=== PATIENT | female | born 1960 | race Caucasian/White ===

== ENCOUNTER 2025-09-06 15:39 | Emergency (ER) | payer MEDICAID, SELFPAY ==
[2025-09-06 15:40] VITALS: BMI 40.3
[2025-09-06 15:48] VITALS: BP 146/83; PULSE 95; RESP 20; TEMP 36.8; O2SAT 98
--- NOTE | 2025-09-06 15:54 | XR_ITS ---
Examination: CT abdomen and pelvis without contrast. Coronal 3-D reconstructions. Sagittal 2-D reconstructions. Date and time of exam: September 06, 2025, 1604 hours INDICATIONS: Generalized abdominal pain and nausea today COMPARISON: September 11, 2023 CTDI: vol (mGy): 19 DLP: (mGycm): 1185 Technique: Axial images of the abdomen have been obtained, 3 mm slice thickness Intravenous contrast material has not been administered. Low dose protocols were performed. One or more of the following dose reduction techniques were used; automated exposure control, adjustment of the mA and/or KV according to patient size, use of iterative reconstruction technique. Findings: 9 mm anterior pericardial effusion No focal liver or splenic lesion Absent gallbladder Common bile duct is not enlarged No pancreatic or adrenal mass Numerous 1 to 3 mm bilateral renal calculi Minimal left hydronephrosis, 8 mm calculus in the left renal pelvis Aorta normal size 23 mm lymph node lateral to the abdominal aorta No bowel obstruction Normal appendix No diverticulitis Anteverted uterus with multiple uterine fundal masses poorly defined on this noncontrast study Urinary bladder intact Moderate osteopenia IMPRESSION: Small pericardial effusion Numerous bilateral renal calculi Minimal left hydronephrosis, 8 mm calculus in the left renal pelvis 23 mm lymph node lateral to the abdominal aorta, consider PET CT scan staging follow-up Recommend pelvic sonography to assess multiple uterine fundal masses
--- NOTE | 2025-09-06 15:55 | PD.EDRME ---
Rapid Medical Screening Exam [facility] Arrival date/time: 09/06/25 15:39 64-year-old female with no known medical history presents to the emergency room with a chief complaint of left-sided flank pain and constipation x 5 days. Patient also states she got scratched by a dog in her right foot and is having redness and drainage from the site. I have greeted and performed a focused initial assessment of this patient. A comprehensive ED assessment and evaluation of the patient, analysis of all test results, and completion of the medical decision making process will be conducted by additional ED providers. Chief Complaint: Abdominal Pain Time Seen by Provider: 09/06/25 15:50 Vital signs: Vital Signs Temperature 98.2 F 09/06/25 15:48 Pulse Rate 95 09/06/25 15:48 Respiratory Rate 20 09/06/25 15:48 Blood Pressure 146/83 H 09/06/25 15:48 Pulse Oximetry (%) 98 09/06/25 15:48 Oxygen Delivery Method Room Air 09/06/25 15:48 Vital signs reviewed by provider: Yes Exam: Left CVA tenderness with palpation. Left sciatic notch tenderness with palpation. Right dorsal foot erythema and drainage Clinical Impression: Renal calculi/hydronephrosis/constipation/small bowel obstruction/
[2025-09-06 16:29] LABS: Basophils # (Auto) 0.0 Thou/mm3 (0.0-0.2); Basophils % (Auto) 1 % (0-2.5); Eosinophils # (Auto) 0.2 Thou/mm3 (0.0-0.5); Eosinophils % (Auto) 2 % (0-10); Hematocrit 50.9 % (36.0-46.0); Hemoglobin 17.5 g/dL (12.0-16.0); Immature Granulocytes Auto 0.02 Thou/mm3 (0.00-0.00); Lymphocytes # (Auto) 1.9 Thou/mm3 (1.0-4.8); Lymphocytes % (Auto) 22 % (10-50); Mean Corpuscular HGB Conc 34.4 g/dl (31.0-37.0); Mean Corpuscular Hemoglobin 30.2 pg (25.0-35.0); Mean Corpuscular Volume 88 fL (80-100); Monocytes # (Auto) 0.5 Thou/mm3 (0.0-0.8); Monocytes % (Auto) 6 % (0-12); Neutrophils # (Auto) 6.1 Thou/mm3 (1.8-7.7); Neutrophils % (Auto) 69 % (37-80); Nucleated Red Blood Cell # 0.00 Thou/mm3 (0.00-0.00); Nucleated Red Blood Cell % 0 /100 WBC (0); Platelet Count 336 Thou/mm3 (140-440); RDW Standard Deviation 39.0 fL (36.4-46.3); Red Blood Count 5.79 Miln/mm3 (4.00-5.20); White Blood Count 8.8 Thou/mm3 (3.6-11.0)
[2025-09-06 16:33] LABS: Collection Type, Urine Clean Catch
[2025-09-06 16:42] LABS: Alanine Aminotransferase 21 U/L (10-49); Albumin, Serum 4.4 gm/dL (3.4-4.8); Albumin/Globulin Ratio 1.8 (1.2-2.2); Alkaline Phosphatase 102 U/L (46-116); Anion Gap 8 (7-16); Aspartate Amino Transferase 26 U/L (0-34); BUN/Creatinine Ratio 11 Ratio (12-20); Bilirubin,Total 1.6 mg/dL (0.3-1.2); Blood Urea Nitrogen 9 mg/dL (9-23); Calcium 9.6 mg/dL (8.3-10.6); Calcium (Corrected) 9.6 mg/dL (8.5-10.1); Carbon Dioxide 31.1 mMol/L (20.0-31.0); Chloride 100 mMol/L (98-107); Creatinine (Component) 0.8 mg/dL (0.6-1.3); Estimated Creatinine Clearance 83.5 mL/min (>60); Globulin 2.4 gm/dL (2.3-3.5); Glucose 333 mg/dL (74-106); Lipase 30 U/L (12-53); Osmolality,Calculated 289 (275-295); Potassium 4.0 mMol/L (3.4-5.1); Sodium 139 mMol/L (136-145); Total Protein 6.8 gm/dL (5.7-8.2); eGFR > 60 See Note
--- NOTE | 2025-09-06 17:08 | PD.EDRME ---
Rapid Medical Screening Exam [facility] Arrival date/time: 09/06/25 15:39 09/06/25 15:39 64-year-old female with no known medical history presents to the emergency room with a chief complaint of left-sided flank pain and constipation x 5 days. Patient also states she got scratched by a dog in her right foot and is having redness and drainage from the site. I have greeted and performed a focused initial assessment of this patient. A comprehensive ED assessment and evaluation of the patient, analysis of all test results, and completion of the medical decision making process will be conducted by additional ED providers. Chief Complaint: Abdominal Pain Time Seen by Provider: 09/06/25 15:50 Vital signs: Vital Signs Temperature 98.2 F 09/06/25 15:48 Pulse Rate 95 09/06/25 15:48 Respiratory Rate 20 09/06/25 15:48 Blood Pressure 146/83 H 09/06/25 15:48 Pulse Oximetry (%) 98 09/06/25 15:48 Oxygen Delivery Method Room Air 09/06/25 15:48 RME Narrative: 09/06/25 15:39 64-year-old female with no known medical history presents to the emergency room with a chief complaint of left-sided flank pain and constipation x 5 days. Patient also states she got scratched by a dog in her right foot and is having redness and drainage from the site. I have greeted and performed a focused initial assessment of this patient. A comprehensive ED assessment and evaluation of the patient, analysis of all test results, and completion of the medical decision making process will be conducted by additional ED providers. Exam: Left CVA tenderness with palpation. Left sciatic notch tenderness with palpation. Right dorsal foot erythema and drainage Clinical Impression: Renal calculi/hydronephrosis/constipation/small bowel obstruction/
[2025-09-06 17:10] LABS: Bacteria,Urine 1+; Bilirubin,Urine Negative (Negative); Blood,Urine 1+ (Negative); Clarity,Urine Turbid (Clear/Hazy); Color,Urine Yellow (Lt Yel-Yel); Glucose, Urine 4+ (Negative); Ketones,Urine Negative (Negative); Leukocyte Esterase,Urine Positive (Negative); Nitrite,Urine Negative (Negative); PH,Urine 7.0 (5.0-7.0); Protein,Urine 1+ (Neg - Trace); RBC,Urine 31 /hpf (0-3); Specific Gravity,Urine 1.020 (1.001-1.035); Squamous Epithelial Cell,Urine 4 /hpf (0-5); Urobilinogen,Urine Negative mg/dL (0.0-1.0); WBC,Urine 100 /hpf (0-5)
[2025-09-06 17:48] VITALS: BP 160/90; PULSE 88; RESP 20; TEMP 36.6; O2SAT 99
--- NOTE | 2025-09-06 17:59 | PD.EDADULT ---
ED General RME/HPI General Chief complaint: Abdominal Pain Stated complaint: CONSIPATION X5-6 DAYS Time Seen by Provider: 09/06/25 15:50 Arrival date/time: 09/06/25 15:39 CC: Left flank pain HPI intermittent for the past 4 to 5 days denies any fever chills, thinks it is constipation has taken multiple laxatives with bowel movements but does not relieve the pain. Patient denies any nausea vomiting. Patient is also complaining of scratches on her right foot from her dog. Denies chest pain shortness of breath or difficulty breathing. At 1800 patient informs me she is noncompliant diabetic and has been for some time . RME / HPI RME / HPI narrative: 09/06/25 15:39 64-year-old female with no known medical history presents to the emergency room with a chief complaint of left-sided flank pain and constipation x 5 days. Patient also states she got scratched by a dog in her right foot and is having redness and drainage from the site. I have greeted and performed a focused initial assessment of this patient. A comprehensive ED assessment and evaluation of the patient, analysis of all test results, and completion of the medical decision making process will be conducted by additional ED providers. Exam: Left CVA tenderness with palpation. Left sciatic notch tenderness with palpation. Right dorsal foot erythema and drainage Impression: Renal calculi/hydronephrosis/constipation/small bowel obstruction/ Related Data Previous Rx's ?Medication ?Instructions ?Recorded ondansetron HCl 4 mg tablet 4 mg PO Q8H #20 tabs 07/12/20 (Zofran) tramadol 50 mg tablet 50 mg PO Q8H PRN pain #14 tabs 09/05/23 tramadol 50 mg tablet 50 mg PO Q6H PRN pain #20 tabs 09/11/23 ciprofloxacin HCl 500 mg tablet 500 mg PO BID #14 tabs 09/06/25 (Cipro) metformin 500 mg tablet 500 mg PO BID #30 tabs 09/06/25 Allergies Allergy/AdvReac Type Severity Reaction Status Date / Time promethazine HCl Allergy Mild PSYCHOSIS Verified 09/06/25 15:43 promethazine (From Phenergan) Allergy Verified 09/06/25 15:43 Review of Systems Review of Systems Narrative Review of Systems: GEN: No fever, no chills, no weight loss EYES: No discharge, no visual changes, no pain HEENT: No ear pain, no congestion, no sore throat PULM: No shortness of breath, no cough, no congestion CV: No chest pain, no dyspnea on exertion, no palpitations GI: No nausea, no vomiting, no diarrhea, no pain, no constipation : No frequency, no urgency, no dysuria MUSC/SKEL: No joint pain, no back pain, + flank pain SKIN: No rash PSYCH: No hallucinations, no depression HEME/LYMPH: No easy bleeding or bruising tendencies NEURO: No weakness, no headache Past Medical History Past Medical History CARDIAC: Negative Cardiac Disorders or Congestive Heart Failure RESPIRATORY: Positive Asthma; Negative Chronic Obstructive Pulmonary Disease (COPD) GENITOURINARY: Negative Renal Disease ENDOCRINE: Positive Endocrine Disorders and Diabetes Mellitus Type 2; Negative Diabetes Mellitus Type 1 HEMATOLOGIC: Negative Sickle Cell Disease PSYCHO/SOCIAL: Positive Anxiety Social History SMOKING STATUS: Never smoker ED Exam Narrative Physical exam: [General: Morbidly obese not in any acute distress Head normocephalic HEENT: Within acceptable limits Neck is supple nontender Chest equal chest rise nontender to palpation Respiratory: Clear to auscultation no wheezes crackles or rubs CV: Rate rhythm is regular no murmurs rubs or clicks Abdomen is grossly distended secondary to body habitus soft, mild tenderness with palpation of the pannus and left lower quadrant no right lower quadrant or upper abdominal pain with palpation. Back: Left CVA tenderness no right CVA tenderness, no spinous process tenderness from cervical spine thoracic and lumbar spine Skin: Intact no petechiae rash induration ulceration or crepitus Extremities: Moving all extremities against resistance cap refill less than 2 seconds neurosensory intact Neuro: Awake alert oriented x3 Glascow coma 15 no focal deficits] Course Course Course Narrative: Reassessment of this patient at 1921, the patient feels much better , patient has no pain no nausea we will discharge the patient home restarting her on metformin, give her antibiotics for the UTI, also she will need to get a referral from her PCP for urology regarding the urolithiasis Quality Measures none Orders Category Date Time Status Saline [Insert IV] NOW Care 09/06/25 17:[address] abdomen pelvis wo con Stat Exams 09/06/25 15:54 Completed CBC Stat Lab 09/06/25 16:13 Completed CMP [Comprehensive Metabolic Panel] Stat Lab 09/06/25 16:13 Completed Hemoglobin A1C [Glycohemoglobin w (eAG)] Stat Lab 09/06/25 18:00 Completed Lipase Stat Lab 09/06/25 16:13 Completed UA [Urinalysis] Stat Lab 09/06/25 16:24 Completed Urine Culture Stat Lab 09/06/25 16:24 Received Ketorolac Inj [Toradol Inj] Med 09/06/25 17:58 Discontinued 30 mg IVP X1 ONE cefTRIAXone/D5w 1gm IV premix [Rocephin/D5w 1gm IV Med 09/06/25 17:58 Discontinued premix] 1 gm in 50 ml IV X1 Vital Signs Vital signs: Vital Signs Temperature 98.2 F 09/06/25 15:48 Pulse Rate 95 09/06/25 15:48 Respiratory Rate 20 09/06/25 15:48 Blood Pressure 146/83 H 09/06/25 15:48 Pulse Oximetry (%) 98 09/06/25 15:48 Oxygen Delivery Method Room Air 09/06/25 15:48 Discharge Plan Plan Patient Disposition: HOME (Self Care) Prescriptions/Referrals Prescriptions/Med Rec: New metformin 500 mg tablet 500 mg PO BID Qty: 30 1RF ciprofloxacin HCl [Cipro] 500 mg tablet 500 mg PO BID Qty: 14 0RF No Action ondansetron HCl [Zofran] 4 mg tablet 4 mg PO Q8H Qty: 20 0RF tramadol 50 mg tablet 50 mg PO Q8H PRN (Reason: pain) Qty: 14 0RF tramadol 50 mg tablet 50 mg PO Q6H PRN (Reason: pain) Qty: 20 0RF Referrals: Noble Stapleton MD [Primary Care Provider, Family Practice] - In 1 week Cary Shipman MD [Physician, Urology] - In 1 week Problem List Clinical Impression: Urolithiasis, Diabetes, History of medication noncompliance Patient/Caregiver Discharge Instructions Education Materials: Diabetes: Living Your Life, ED Kidney Stone Undescended No ... Additional Instructions: Take the antibiotics for the urinary tract infection, please start the metformin as prescribed to start to manage your diabetes, please follow-up with both of these with your primary care doctor. Also please follow-up your primary care doctor and get a referral for urology regarding the stone in your pelvis of your kidney. If there is worsening of the pain in spite of ibuprofen or Tylenol at home return to the emergency room for reevaluation. Print Language: Jamaican Stand Alone Forms: Rose Award Info., Patient Portal Info Letter, Work/School Release BLAS/FLACO Supervising Physician SHAHBAZ Supervising Physician: Carlos Torres ENP MDM Clinical Information Provided by: patient Medical Records reviewed [facility] Meds/Rx considered, not ordered None Labs/Rad/Tests considered, not ordered None Chronic Illness/Social Conditions Explain: Obesity EKG EKG not done Labs Labs: interpreted by pa Lab(s) Interpretation(s): CBC shows no leukocytosis she has hemoconcentrated with hemoglobin of 17.5 and crit of 50.9. No thrombocytopenia CMP shows no significant electrolyte imbalances other than a glucose of 333, no renal impairment transaminitis. T. bili is elevated at 1.6. Lipase at 30 Urine is turbid 4+ glucose leukocyte esterase +100 WBCs 31 RBCs 1+ bacteria. Medication Administration(s) Medication Administration History Discontinued Medications Ceftriaxone Sodium/Dextrose (Rocephin/D5w 1gm Iv Premix) 1 gm in 50 mls @ 100 mls/hr IV X1 ONE Stop: 09/06/25 18:27 Last Infusion: 09/06/25 19:11 Dose: Infused Documented By: Admin: 09/06/25 18:17 Dose: 100 mls/hr Documented By: ABIGAIL Ketorolac Tromethamine (Ketorolac Inj 30 Mg/Ml Vial) 30 mg IVP X1 ONE Stop: 09/06/25 17:59 Last Admin: 09/06/25 18:16 Dose: 30 mg Documented By: ABIGAIL
--- NOTE | 2025-09-06 18:09 | PC.NURSE ---
Patient from lobby and taken to room 16 with c/o left lower abd. pain radiating down left leg x 3 days, new orders received from provider.
[2025-09-06] MEDS: KETOROLAC INJ 30 MG/ML VIAL IVP (18:16)
[2025-09-06] MEDS: cefTRIAXone/D5w 1gm IV premix 1 GM/50 ML BAG IV (18:17)
[2025-09-06 18:31] VITALS: BP 144/82; PULSE 81; RESP 17; TEMP 36.8; O2SAT 97
[2025-09-06 18:41] LABS: Glucose Estimated Average 278 mg/dL (80-131); Hemoglobin A1C 11.3 % Hgb (4.8-6.0)
== END 2025-09-06 19:33 | disposition home or self-care (01) ==
PROVIDERS: Nurse Practitioner Family; Registered Nurse General Practice; Emergency Provider Emergency Medicine; PCP Family Medicine
DX: N13.2 Hydronephrosis with renal and ureteral calculous obstruction (principal); E11.9 Type 2 diabetes mellitus without complications; E66.9 Obesity, unspecified; Z79.84 Long term (current) use of oral hypoglycemic drugs
CPT/HCPCS: 36415; 74176; 80053; 81001; 83036; 83690; 85025; 87077; 87086; 87186; 96365; 96375; 99284; J0696; J1885

== ENCOUNTER 2025-10-10 18:07 | Emergency (ER) | payer MEDICAID, SELFPAY ==
[2025-10-10 19:11] VITALS: BP 103/71; PULSE 98; RESP 18; TEMP 37.6; O2SAT 97
--- NOTE | 2025-10-10 19:22 | XR_ITS ---
Examination: CT abdomen and pelvis without contrast. Coronal 3-D reconstructions. Sagittal 2-D reconstructions. Date and time of exam: October 10, 2025, 1932 hours INDICATIONS: Left flank pain vomiting today, history kidney stones CTDI: vol (mGy): 21.3 DLP: (mGycm): 1037 Technique: Axial images of the abdomen have been obtained, 3 mm slice thickness Intravenous contrast material has not been administered. Low dose protocols were performed. One or more of the following dose reduction techniques were used; automated exposure control, adjustment of the mA and/or KV according to patient size, use of iterative reconstruction technique. Findings: Pericardial effusion anteriorly measuring 10 mm No visualized liver or splenic lesion Absent gallbladder No pancreatic or adrenal mass Numerous bilateral renal calculi ranging in size from 2 to 10 mm No hydronephrosis or ureteral calculi Normal appendix No bowel obstruction or diverticulitis Multiple uterine fundal masses No bladder mass or bladder calculi Moderate osteopenia IMPRESSION: Numerous bilateral nonobstructing renal calculi, no hydronephrosis or ureteral calculi Normal appendix Consider pelvic sonography to assess multiple uterine fundal masses
--- NOTE | 2025-10-10 19:22 | PD.EDRME ---
Rapid Medical Screening Exam [facility] Arrival date/time: 10/10/25 18:07 This is a case of 64-year-old female with history of kidney stone and was recently diagnosed to have kidney stone again last month came in in the emergency room due to left flank pain radiating to the left lower abdomen with nausea of and vomiting worsening of the symptoms this patient decided to start consulted in the emergency room Chief Complaint: Urogenital-Female Time Seen by Provider: 10/10/25 18:36 Vital signs: Vital Signs Temperature 99.7 F 10/10/25 19:11 Pulse Rate 98 10/10/25 19:11 Respiratory Rate 18 10/10/25 19:11 Blood Pressure 103/71 10/10/25 19:11 Pulse Oximetry (%) 97 10/10/25 19:11 Oxygen Delivery Method Room Air 10/10/25 19:11 Exam: Moderate tenderness left flank and left lower quadrant no guarding no rebound no rigidity Clinical Impression: Kidney stone
[2025-10-10 19:46] LABS: Basophils # (Auto) 0.1 Thou/mm3 (0.0-0.2); Basophils % (Auto) 0 % (0-2.5); Eosinophils # (Auto) 0.0 Thou/mm3 (0.0-0.5); Eosinophils % (Auto) 0 % (0-10); Hematocrit 48.1 % (36.0-46.0); Hemoglobin 16.4 g/dL (12.0-16.0); Immature Granulocytes Auto 0.24 Thou/mm3 (0.00-0.00); Lymphocytes # (Auto) 0.3 Thou/mm3 (1.0-4.8); Lymphocytes % (Auto) 1 % (10-50); Mean Corpuscular HGB Conc 34.1 g/dl (31.0-37.0); Mean Corpuscular Hemoglobin 29.9 pg (25.0-35.0); Mean Corpuscular Volume 88 fL (80-100); Monocytes # (Auto) 1.4 Thou/mm3 (0.0-0.8); Monocytes % (Auto) 5 % (0-12); Neutrophils # (Auto) 24.3 Thou/mm3 (1.8-7.7); Neutrophils % (Auto) 92 % (37-80); Nucleated Red Blood Cell # 0.00 Thou/mm3 (0.00-0.00); Nucleated Red Blood Cell % 0 /100 WBC (0); Platelet Count 248 Thou/mm3 (140-440); RDW Standard Deviation 40.0 fL (36.4-46.3); Red Blood Count 5.49 Miln/mm3 (4.00-5.20); White Blood Count 26.4 Thou/mm3 (3.6-11.0)
[2025-10-10 20:16] LABS: Alanine Aminotransferase 18 U/L (10-49); Albumin, Serum 4.1 gm/dL (3.4-4.8); Albumin/Globulin Ratio 1.3 (1.2-2.2); Alkaline Phosphatase 100 U/L (46-116); Anion Gap 13 (7-16); Aspartate Amino Transferase 23 U/L (0-34); BUN/Creatinine Ratio 16 Ratio (12-20); Bilirubin,Total 1.5 mg/dL (0.3-1.2); Blood Urea Nitrogen 14 mg/dL (9-23); Calcium 9.7 mg/dL (8.3-10.6); Calcium (Corrected) 9.7 mg/dL (8.5-10.1); Carbon Dioxide 24.4 mMol/L (20.0-31.0); Chloride 101 mMol/L (98-107); Creatinine (Component) 0.9 mg/dL (0.6-1.3); Globulin 3.2 gm/dL (2.3-3.5); Glucose 289 mg/dL (74-106); Lipase 22 U/L (12-53); Osmolality,Calculated 287 (275-295); Potassium 3.3 mMol/L (3.4-5.1); Sodium 138 mMol/L (136-145); Total Protein 7.3 gm/dL (5.7-8.2); eGFR > 60 See Note
[2025-10-10 20:23] LABS: Collection Type, Urine Clean Catch
[2025-10-10 20:34] LABS: Bacteria,Urine 1+; Bilirubin,Urine Negative (Negative); Blood,Urine 1+ (Negative); Clarity,Urine Clear (Clear/Hazy); Color,Urine Lt-Yellow (Lt Yel-Yel); Glucose, Urine 4+ (Negative); Ketones,Urine 2+ (Negative); Leukocyte Esterase,Urine Positive (Negative); Nitrite,Urine Negative (Negative); PH,Urine 5.5 (5.0-7.0); Protein,Urine Trace (Neg - Trace); RBC,Urine 11 /hpf (0-3); Specific Gravity,Urine 1.031 (1.001-1.035); Squamous Epithelial Cell,Urine 8 /hpf (0-5); Urobilinogen,Urine Negative mg/dL (0.0-1.0); WBC,Urine 11 /hpf (0-5)
--- NOTE | 2025-10-10 22:05 | PD.EDFMALE ---
ED Female Urogenital RME/HPI General Chief complaint: Urogenital-Female Stated complaint: L) KIDNEY STONE, VOMITING Time Seen by Provider: 10/10/25 18:36 Arrival date/time: 10/10/25 18:07 RME / HPI RME / HPI Narrative: 10/10/25 18:07 This is a case of 64-year-old female with history of kidney stone and was recently diagnosed to have kidney stone again last month came in in the emergency room due to left flank pain radiating to the left lower abdomen with nausea of and vomiting worsening of the symptoms this patient decided to start consulted in the emergency room Dr. [facility] ED Evaluation: 64yo female presents to the ED for a chief complaint of left flank pain. No radiation or migration. Patient was informed she had a kidney stone last month and was told to come back if her pain worsened. Patient reports associated nausea, vomiting, and intermittent dysuria. Patient denies any abdominal pain, fever, chills, or any other associated symptoms. Patient is pending an appointment with a urologist, but was told the next available appointment was not until November. Related Data Previous Rx's ?Medication ?Instructions ?Recorded ondansetron HCl 4 mg tablet 4 mg PO Q8H #20 tabs 07/12/20 (Zofran) tramadol 50 mg tablet 50 mg PO Q8H PRN pain #14 tabs 09/05/23 tramadol 50 mg tablet 50 mg PO Q6H PRN pain #20 tabs 09/11/23 ciprofloxacin HCl 500 mg tablet 500 mg PO BID #14 tabs 09/06/25 (Cipro) metformin 500 mg tablet 500 mg PO BID #30 tabs 09/06/25 cephalexin 500 mg capsule 1,000 mg (2 x 500 mg) PO BID 7 10/10/25 days #28 caps ondansetron 4 mg disintegrating 4 mg PO Q6H PRN nausea and 10/10/25 tablet vomiting #20 tabs Allergies Allergy/AdvReac Type Severity Reaction Status Date / Time promethazine HCl Allergy Mild PSYCHOSIS Verified 10/10/25 18:10 promethazine (From Phenergan) Allergy Verified 10/10/25 18:10 Review of Systems Review of Systems Systems Reviewed: All systems reviewed, normal except as documented Past Medical History Past Medical History CARDIAC: Negative Cardiac Disorders or Congestive Heart Failure RESPIRATORY: Positive Asthma; Negative Chronic Obstructive Pulmonary Disease (COPD) GENITOURINARY: Negative Renal Disease ENDOCRINE: Positive Endocrine Disorders and Diabetes Mellitus Type 2; Negative Diabetes Mellitus Type 1 HEMATOLOGIC: Negative Sickle Cell Disease PSYCHO/SOCIAL: Positive Anxiety Surgical History SURGICAL: Positive Section (x2) Social History SMOKING STATUS: Never smoker ED Exam Narrative Physical exam: Generally patient is alert morbidly obese but no obvious distress, heart regular rate and rhythm, lungs clear to auscultation equal bilaterally, abdomen is obese soft nondistended nontender, musculoskeletal exam showed the patient had mild left-sided costovertebral angle tenderness, skin is warm pale and dry, neurologic exam showed Ye Coma Scale of 15 without focal motor deficits and without ataxia Course Quality Measures none Orders Category Date Time Status CT abdomen pelvis wo con Stat Exams 10/10/25 19:22 Completed CBC Stat Lab 10/10/25 19:35 Completed Comprehensive Metabolic Panel Stat Lab 10/10/25 19:35 Completed Lipase Stat Lab 10/10/25 19:35 Completed Urinalysis Stat Lab 10/10/25 20:00 Completed Morphine* Inj Med 10/10/25 22:14 Discontinued 4 mg IVP X1 ONE Ondansetron Inj [Zofran Inj] Med 10/10/25 22:14 Discontinued 4 mg IVP X1 ONE cefTRIAXone/D5w 1gm IV premix [Rocephin/D5w 1gm IV Med 10/10/25 22:14 Active premix] 1 gm in 50 ml IV X1 Vital Signs Vital signs: Vital Signs Temperature 99.7 F 10/10/25 19:11 Pulse Rate 98 10/10/25 19:11 Respiratory Rate 18 10/10/25 19:11 Blood Pressure 103/71 10/10/25 19:11 Pulse Oximetry (%) 97 10/10/25 19:11 Oxygen Delivery Method Room Air 10/10/25 19:11 Urogenital - Female MDM Narrative MDM Narrative:: Scribe Attestation: 10/10/25 - Rosie Barbour am scribing for and in the presence of Dr. Balbuena. Patient has a white blood cell count of 26,000 with a left shift. CT scan done of the abdomen and pelvis without contrast showed masses on the uterus which the patient is familiar with. It showed no evidence of hydroureteronephrosis. There were stones within the kidneys. No inflammatory process seen. No diverticulitis. The urine is quite possibly infected. This would make sense with the left flank pain and the leukocytosis. At this time I will treat the patient for a UTI/pyelonephritis. Patient will receive Rocephin 1 g IV as well as morphine 4 mg IV and Zofran 4 mg IV. Patient will be discharged on cephalexin and Zofran to be taken as prescribed. She is to return to the emergency room if no improvement in her condition in 2 days. Return sooner if condition worsens. Again, at this time there is no other cause or reason for the leukocytosis other than the possibility of the UTI based on the urinalysis. Patient data External records reviewed:: [facility] previous records (Per chart review, patient was seen here on 09/06/25 for diabetes.) Clinical information provided by:: patient Social determinants that could affect healthcare access:: none Patient has the following chronic illnesses:: DM, asthma How is presenting disease/condition affected by chronic disease/condition?: no chronic disease Evaluation data The following diagnostics were reviewed and interpreted by me:: lab results and radiology exam(s) Lab and/or radiology exams considered but not ordered:: none Interpretation Summary: [facility] Report Signed Patient: RISHABH العراقي [facility]. Record#: [id number] Birthdate: 1960 Age/Sex: 64 / F Location: [facility] Attending Dr: Ordering Physician: Akash Rios Date of Service: 10/10/25 Procedure(s): CT abdomen pelvis wo [facility] Accession Number(s): [id number] cc: Noble Stapleton MD; Ramon Perry MD; Akash Rios~ Examination: CT abdomen and pelvis without contrast. Coronal 3-D reconstructions. Sagittal 2-D reconstructions. Date and time of exam: October 10, 2025, 1932 hours INDICATIONS: Left flank pain vomiting today, history kidney stones CTDI: vol (mGy): 21.3 DLP: (mGycm): 1037 Technique: Axial images of the abdomen have been obtained, 3 mm slice thickness Intravenous contrast material has not been administered. Low dose protocols were performed. One or more of the following dose reduction techniques were used; automated exposure control, adjustment of the mA and/or KV according to patient size, use of iterative reconstruction technique. Findings: Pericardial effusion anteriorly measuring 10 mm No visualized liver or splenic lesion Absent gallbladder No pancreatic or adrenal mass Numerous bilateral renal calculi ranging in size from 2 to 10 mm No hydronephrosis or ureteral calculi Normal appendix No bowel obstruction or diverticulitis Multiple uterine fundal masses No bladder mass or bladder calculi Moderate osteopenia IMPRESSION: Numerous bilateral nonobstructing renal calculi, no hydronephrosis or ureteral calculi Normal appendix Consider pelvic sonography to assess multiple uterine fundal masses Dictated By: Ramon Perry MD Signed By: <Electronically signed by Ramon Perry MD in [place]> 10/10/252044 Medications / Prescriptions Medications or Prescriptions considered but not ordered:: none Medication administrations:: Medication Administration History Ceftriaxone Sodium/Dextrose (Rocephin/D5w 1gm Iv Premix) 1 gm in 50 mls @ 100 mls/hr IV X1 ONE Stop: 10/10/25 22:43 Discontinued Medications Morphine Sulfate (Morphine Sulf Inj 4 Mg/Ml Vial) 4 mg IVP X1 ONE Stop: 10/10/25 22:15 Ondansetron HCl (Ondansetron Inj 2 Mg/Ml Inj 2 Ml) 4 mg IVP X1 ONE; Protocol Stop: 10/10/25 22:15 see above Consultations Consultation(s) initiated? (list below): No Diagnosis Urogenital Female Differential Diagnosis: other (See MDM) Most likely diagnosis given after review of the tests above:: see clinical impression below Admission Indicated Admission indicated?: not indicated Admission Request Was there a request for admission?: No Disposition Plan Disposition Plan: Discharge Discharge Attestation Discharge Attestation: The patient and all family members were given an opportunity to ask questions and understood the discharge instructions. Discharge instructions specifically effects, indications for sooner follow up or return to the emergency department, and the expected course of current diagnosis. Patient condition: Stable Discharge Plan Plan Patient Disposition: HOME (Self Care) Prescriptions/Referrals Prescriptions/Med Rec: New cephalexin 500 mg capsule 1,000 mg PO BID 7 Days Qty: 28 0RF ondansetron 4 mg tablet,disintegrating 4 mg PO Q6H PRN (Reason: nausea and vomiting) Qty: 20 0RF No Action ondansetron HCl [Zofran] 4 mg tablet 4 mg PO Q8H Qty: 20 0RF tramadol 50 mg tablet 50 mg PO Q8H PRN (Reason: pain) Qty: 14 0RF metformin 500 mg tablet 500 mg PO BID Qty: 30 1RF ciprofloxacin HCl [Cipro] 500 mg tablet 500 mg PO BID Qty: 14 0RF tramadol 50 mg tablet 50 mg PO Q6H PRN (Reason: pain) Qty: 20 0RF Referrals: Noble Stapleton MD [Primary Care Provider, Family Practice] - In 1 week Problem List Clinical Impression: Pyelonephritis Patient/Caregiver Discharge Instructions Education Materials: Kidney Infec Dc Additional Instructions: Medication as prescribed. Return to ER if no improvement in 2 days. Keep well-hydrated. Print Language: Hebrew Stand Alone Forms: Rose Award Info., Patient Portal Info Letter
[2025-10-10] MEDS: ONDANSETRON INJ 2 MG/ML INJ 2 ML 4 MG IVP (22:41)
[2025-10-10] MEDS: MORPHINE SULF INJ 4 MG/ML VIAL IVP (22:41)
[2025-10-10] MEDS: cefTRIAXone/D5w 1gm IV premix 1 GM/50 ML BAG IV (22:42)
== END 2025-10-10 23:40 | disposition home or self-care (01) ==
PROVIDERS: Nurse Practitioner Family; Emergency Provider Emergency Medicine; PCP Family Medicine
DX: N12 Tubulo-interstitial nephritis, not specified as acute or chronic (principal)
CPT/HCPCS: 36415; 74176; 80053; 81001; 83690; 85025; 96365; 96375; 99283; J0696; J2270; J2405